=== PATIENT | male | born 1965 | race Caucasian/White ===

== ENCOUNTER 2016-07-11 08:23 | Inpatient (IN) ==
--- NOTE | 2016-07-11 09:22 | Emergency Department Note ---
Disposition Clinical Impression: Epigastric abdominal pain, Back pain, Abnormal chest x-ray, Small bowel obstruction, Gallbladder disease Disposition: Admitted As Inpatient Referrals: NO,PCP [Primary Care Provider] - Forms: Work/School Release, ED Satisfaction Letter General Adult HPI - General Chief complaint: ED Abdominal Pain Stated complaint: abdominal pain Time Seen by Provider: 07/11/16 09:13 Source: patient Limitations: no limitations - History of Present Illness HPI Narrative: 51-year-old male reports to the emergency department complaining of midepigastric pain and some back pain. The patient reports he was seen by his primary care provider and was diagnosed with an abdominal wall hernia, he has been referred to surgery. The patient reports persistent midabdominal discomfort, he took some Pepcid which did not help. The patient denies any chest pain shortness of breath cough and runny nose or pain or sore throat no coughing of blood like swelling or syncope. The patient denies any chest pain. He has no history of coronary disease but does have history of hypertension hyperlipidemia. No previous history of aneurysm, abdominal surgery, or kidney stone. No genital complaints, no bloody urine, no bloody stool. No vomiting. The patient has chronic lower back pain, no previous surgeries. There is no history of weakness or numbness in legs or bowel or bladder problems. The patient describes bulging in his abdomen. There is no history of trauma or redness of the skin in the abdominal area. There is no history of rash. The patient reports abdominal pain is present intermittently for 3 weeks. Pain Scale: 3 - Related Data Home Medications Medication Instructions Recorded Confirmed Amlodipine Besylate [Amlodipine 10 mg PO DAILY 07/11/16 07/11/16 Besylate] Atorvastatin [Lipitor] 40 mg PO HS 07/11/16 07/11/16 Allergies Allergy/AdvReac Type Severity Reaction Status Date / Time No Known Allergies Allergy Verified 07/11/16 12:36 All systems ED: reviewed and negative except as stated. Past Medical History - Past Medical History Medical history: Reports: hyperlipidemia, hypertension - Social History Smoking Status: Current some day smoker Alcohol use: Reports: occasionally Drug use: Reports: none Physical Exam - General Limitations: no limitations General appearance: alert, in no apparent distress - Head Head exam: atraumatic, normocephalic, normal inspection - Eye Eye exam: Present: normal appearance, PERRL, EOMI - ENT ENT exam: normal exam, normal oropharynx, mucous membranes moist, normal external ear exam - Neck Neck exam: Present: normal inspection, full ROM, trachea midline - Chest Chest inspection: Present: symmetric chest wall rise. Absent: tenderness - Respiratory Respiratory exam: Present: normal lung sounds bilaterally. Absent: respiratory distress - Cardiovascular Cardiovascular exam: Present: regular rate, normal rhythm, normal heart sounds - Abdominal Exam Abdominal exam: Present: soft, tenderness, hernia. Absent: distention, guarding , rebound, rigidity, trauma, incision, Anders's sign, Rovsing's sign, tenderness at McBurney's Point, ascites, mass, bruit, pulsatile mass, scar Abdominal tenderness: Present: epigastrium, mild - Extremities Exam Extremities exam: Present: normal inspection, full ROM, normal capillary refill. Absent: tenderness, pedal edema, joint swelling, calf tenderness - Expanded Lower Extremity Exam Neurovascular/Tendon exam: Absent: motor deficit, sensory deficit, tendon deficit, extremity cold to touch, pallor - Back Exam Back exam: Present: normal inspection, full ROM. Absent: tenderness, CVA tenderness (R), CVA tenderness (L), muscle spasm, vertebral tenderness, straight leg raise (R), straight leg raise (L) - Neurological Exam Neurological exam: Present: alert, oriented X3, CN II-XII intact. Absent: motor sensory deficit - Psychiatric Psychiatric exam: Present: normal affect, normal mood - Skin Skin exam: Present: warm, dry, intact, normal color. Absent: rash, cyanosis, diaphoresis, erythema, pallor, mottled Course Vital Signs Temperature 97.7 F 07/11/16 08:24 Pulse Rate 96 07/11/16 08:24 Respiratory Rate 16 07/11/16 08:24 Blood Pressure 135/89 07/11/16 08:24 O2 Sat by Pulse Oximetry 98 07/11/16 08:24 Temperature 97.7 F 07/11/16 08:24 Pulse Rate 70 07/11/16 12:21 Respiratory Rate 16 07/11/16 12:21 Blood Pressure 147/58 07/11/16 12:21 O2 Sat by Pulse Oximetry 100 07/11/16 12:21 Oxygen Delivery Oxygen Delivery Room Air Medical Decision Making - [facility] Narrative Medical decision making narrative: The patient's CT scan reveals what appears to be a small bowel obstruction. Based on the the findings I think the patient will require admission to the hospital. I consulted with the hospitalist on-call. An NG tube has been ordered for gastric decompression. I also consult with Dr. Fernández the surgeon on-call who will act as csm consultant. The patient has been accepted to internal medicine. - Lab Data Lab results reviewed: Yes I reviewed the patient's lab results. Result diagrams: 07/11/16 10:14 07/11/16 10:14 Lab Results 07/11/16 07/11/16 07/11/16 Range/Units 09:23 10:14 10:14 WBC 9.8 (4.3-11.1) K/mcL RBC 5.47 (4.19-5.50) M/mcL Hgb 16.5 (12.9-16.9) g/dL Hct 50.0 (37.5-50.1) % MCV 91.4 (83.0-100.0) fL MCH 30.2 (28.0-33.3) pg MCHC 33.0 (31.6-35.5) g/dL RDW 13.1 (11.5-14.5) % Plt Count 182 (140-400) K/mcL MPV 10.6 (9.4-12.4) fL Immature Gran % 0.3 (0-4) % Seg Neutrophils % 73.6 % Lymphocytes % 18.9 % Monocytes % 5.2 % Eosinophils % 1.7 % Basophils % 0.3 % Neutrophils # 7.2 (1.6-8.9) K/mcL Lymphocytes # 1.9 (0.6-4.6) K/mcL Monocytes # 0.5 (0.0-1.3) K/mcL Eosinophils # 0.2 (0.0-0.6) K/mcL Basophils # 0.0 (0.0-0.2) K/mcL Sodium 141 (136-145) mEq/L Potassium 4.3 (3.5-4.5) mEq/L Chloride 106 (98-109) mEq/L Carbon Dioxide 28 (19-29) mEq/L BUN 10 (8-26) mg/dL Creatinine 1.02 (0.72-1.25) mg/dL Est GFR ( Amer) > 60 (> 60) Est GFR (Non-Af Amer) > 60 (> 60) BUN/Creatinine Ratio 10 (6-26) Glucose 104 H (70-99) mg/dL Calculated Osmolality 291 (280-300) Lactic Acid (0.5-2.2) mmol/L Calcium 10.0 (8.6-10.8) mg/dL Total Bilirubin 0.6 (0.2-1.2) mg/dL Direct Bilirubin 0.2 (0.0-0.5) mg/dL Indirect Bilirubin 0.4 (0.0-1.2) mg/dL AST 20 (5-34) Units/L ALT 28 (0-55) Units/L Alkaline Phosphatase 72 (38-126) Units/L Troponin I (0-0.03) ng/mL C-Reactive Protein 0 (Less than 5) mg/L Serum Total Protein 7.1 (6.0-8.3) g/dL Albumin 4.1 (3.5-5.0) g/dL Globulin 3.0 (2.4-3.5) g/dL Albumin/Globulin Ratio 1.4 (1.1-2.2) Amylase 38 (25-125) Units/L Lipase 23 (8-78) Units/L Urine Color Yellow (Yellow) Urine Clarity Clear (Clear) Urine pH 7.0 (5.0-8.0) pH Units Ur Specific [place] 1.026 H (1.010-1.025) Urine Protein Negative (Neg-Trace) mg/dL Urine Glucose (UA) Normal (Normal) mg/dL Urine Ketones Negative (Negative) mg/dL Urine Blood Negative (Negative) Urine Nitrite Negative (Negative) Urine Bilirubin Negative (Negative) Urine Urobilinogen Normal (Normal) mg/dL Ur Leukocyte Esterase Negative (Negative) Ur Culture Indicated? NO (NO) 07/11/16 07/11/16 Range/Units 10:14 10:14 WBC (4.3-11.1) K/mcL RBC (4.19-5.50) M/mcL Hgb (12.9-16.9) g/dL Hct (37.5-50.1) % MCV (83.0-100.0) fL MCH (28.0-33.3) pg MCHC (31.6-35.5) g/dL RDW (11.5-14.5) % Plt Count (140-400) K/mcL MPV (9.4-12.4) fL Immature Gran % (0-4) % Seg Neutrophils % % Lymphocytes % % Monocytes % % Eosinophils % % Basophils % % Neutrophils # (1.6-8.9) K/mcL Lymphocytes # (0.6-4.6) K/mcL Monocytes # (0.0-1.3) K/mcL Eosinophils # (0.0-0.6) K/mcL Basophils # (0.0-0.2) K/mcL Sodium (136-145) mEq/L Potassium (3.5-4.5) mEq/L Chloride (98-109) mEq/L Carbon Dioxide (19-29) mEq/L BUN (8-26) mg/dL Creatinine (0.72-1.25) mg/dL Est GFR ( Amer) (> 60) Est GFR (Non-Af Amer) (> 60) BUN/Creatinine Ratio (6-26) Glucose (70-99) mg/dL Calculated Osmolality (280-300) Lactic Acid 0.9 (0.5-2.2) mmol/L Calcium (8.6-10.8) mg/dL Total Bilirubin (0.2-1.2) mg/dL Direct Bilirubin (0.0-0.5) mg/dL Indirect Bilirubin (0.0-1.2) mg/dL AST (5-34) Units/L ALT (0-55) Units/L Alkaline Phosphatase (38-126) Units/L Troponin I 0.00 (0-0.03) ng/mL C-Reactive Protein (Less than 5) mg/L Serum Total Protein (6.0-8.3) g/dL Albumin (3.5-5.0) g/dL Globulin (2.4-3.5) g/dL Albumin/Globulin Ratio (1.1-2.2) Amylase (25-125) Units/L Lipase (8-78) Units/L Urine Color (Yellow) Urine Clarity (Clear) Urine pH (5.0-8.0) pH Units Ur Specific [place] (1.010-1.025) Urine Protein (Neg-Trace) mg/dL Urine Glucose (UA) (Normal) mg/dL Urine Ketones (Negative) mg/dL Urine Blood (Negative) Urine Nitrite (Negative) Urine Bilirubin (Negative) Urine Urobilinogen (Normal) mg/dL Ur Leukocyte Esterase (Negative) Ur Culture Indicated? (NO) - Radiology Data Radiology results reviewed: Yes I reviewed the patient's radiology results.
[2016-07-11 10:12] LABS: Bilirubin,Urine Negative (Negative); Blood,Urine Negative (Negative); Clarity,Urine Clear (Clear); Color,Urine Yellow (Yellow); Glucose,Urine (UA) Normal (Normal); Ketones,Urine Negative (Negative); Leukocyte Esterase,Urine Negative (Negative); Nitrite,Urine Negative (Negative); Protein,Urine Negative (Neg-Trace); Specific Gravity,Urine 1.026 (1.010-1.025); Urobilinogen,Urine Normal (Normal)
[2016-07-11] MEDS ORDERED: 0.9 % Sodium Chloride 1,000 ML IVC ONE (10:19)
[2016-07-11 10:21] LABS: Basophils % 0.3 %; Eosinophils # 0.2 K/mcL (0.0-0.6); Eosinophils % 1.7 %; Hemoglobin 16.5 g/dL (12.9-16.9); Immature Granulocytes % 0.3 % (0-4); Lymphocytes # 1.9 K/mcL (0.6-4.6); Lymphocytes % 18.9 %; Mean Corpuscular Hemoglobin 30.2 pg (28.0-33.3); Mean Corpuscular Volume 91.4 fL (83.0-100.0); Mean Platelet Volume 10.6 fL (9.4-12.4); Monocytes # 0.5 K/mcL (0.0-1.3); Monocytes % 5.2 %; Neutrophils # 7.2 K/mcL (1.6-8.9); Platelet Count 182 K/mcL (140-400); Red Blood Count 5.47 M/mcL (4.19-5.50); Red Cell Distribution Width 13.1 % (11.5-14.5); Segmented Neutrophils % 73.6 %
[2016-07-11 10:35] LABS: Alanine Aminotransferase 28 Units/L (0-55); Albumin 4.1 g/dL (3.5-5.0); Albumin/Globulin Ratio 1.4 (1.1-2.2); Alkaline Phosphatase 72 Units/L (38-126); Amylase 38 Units/L (25-125); Aspartate Amino Transferase 20 Units/L (5-34); BUN/Creatinine Ratio 10 (6-26); Bilirubin,Direct 0.2 mg/dL (0.0-0.5); Bilirubin,Indirect 0.4 mg/dL (0.0-1.2); Bilirubin,Total 0.6 mg/dL (0.2-1.2); Blood Urea Nitrogen 10 mg/dL (8-26); Carbon Dioxide 28 mEq/L (19-29); Chloride 106 mEq/L (98-109); Glucose 104 mg/dL (70-99); Lipase 23 Units/L (8-78); Osmolality,Calculated 291 (280-300); Potassium 4.3 mEq/L (3.5-4.5); Sodium 141 mEq/L (136-145); Total Protein 7.1 g/dL (6.0-8.3); eGFR For African Americans > 60 (> 60); eGFR For Non-African Americans > 60 (> 60)
[2016-07-11 10:52] LABS: C-Reactive Protein 0 mg/L (Less than 5)
[2016-07-11] MEDS ORDERED: *HR* HYDROmorphone (PF) 1 MG/ML SYRINGE IVP ONE (15:01)
[2016-07-11] MEDS ORDERED: Ondansetron 4 MG/2 ML VIAL IVP ONE (15:02)
--- NOTE | 2016-07-11 16:13 | General Surgery Consult Note ---
<Kizzy Khoury Harriet - Last Filed: 07/11/16 16:18> Date of Encounter: 07/11/16 Time of Encounter: 16:00 Assessment and Plan (1) Small bowel obstruction Current Visit: Yes Status: Acute Conservative measures including: NPO except ice chips NG tube to LIWS IV fluids Supportive care/pain control Serial abdominal exams No urgent surgical intervention indicated at this time Will continue to follow and assess progress History of Present Illness Consult date: 07/11/16 Reason for consult: other (SBO) History of present illness: Mr. Gilliam is a very pleasant 51 year old male with a past medical history significant for hypertension and hyperlipidemia. He presented to the ED after having sudden onset of back and abdominal pain at 0500 this morning. He states that he pain on presentation was concentrated around his central abdomen. He has never experienced pain like this in the past. Reports sensation of bloating and nausea. Denies any vomiting. Denies any fevers of chills. Denies any shortness of breath or chest pains. Denies any difficulty with urination. His last bowel movement was this morning and was diarrhea. Denies any melena or hematochezia. He typically has a bowel movement daily or more. We have been asked to see an evaluate the patient for possible small bowel obstruction. Past Med Surg Social Fam HX - Past Medical History Source: patient Medical history: hyperlipidemia, hypertension - Past Surgical History Surgical History: orthopedic, other (spinal fusion), other (T&A) - Social History Smoking Status: Current some day smoker Alcohol use: occasionally (3 times per week) Drug use: none Occupational status: employed Current living situation: Home - Independent Activity Level: Independent ambulation - Family History Father Living Status: Still Living Hx Family Cardiac Disorders: Yes (CAD) Mother Living Status: Still Living Medications and Allergies Amlodipine Besylate [Amlodipine Besylate] 10 mg PO DAILY 07/11/16 [History] Atorvastatin [Lipitor] 40 mg PO HS 07/11/16 [History] Allergies No Known Allergies Allergy (Verified 07/11/16 12:36) Review of Systems All systems PM: reviewed and no additional remarkable complaints except as stated (in the HPI) All systems PM: A 10-system review of systems was performed and is negative for pertinent findings except as documented above in the HPI. General Surgery Exam Initial Vital Signs Temp Pulse Resp BP Pulse Ox 97.7 F 96 16 135/89 98 07/11/16 08:24 07/11/16 08:24 07/11/16 08:24 07/11/16 08:24 07/11/16 08:24 - General physical appearance well developed, well nourished, no distress, no pain - Eyes normal ocular movement - ENT normal mucosa, atraumatic, normocephalic - Neck trachea midline - Respiratory normal expansion, normal respiratory effort, clear to auscultation - Cardiovascular Cardiovascular exam: Present: RRR, 15, 16 - Abdomen Abdomen general surgery: Present: bowel sounds present, soft, non tender, wound (NG tube to LIWS with minimal amount of clear drainage noted) - Integumentary Integumentary general surgery: Present: warm and dry - Neurologic Present: CN 2-12 grossly intact - Musculoskeletal Present: normal gait, normal posture - Psychiatric Psychiatric general surgery: Present: appropriate, oriented to person, oriented to place, oriented to time, speech is normal, memory intact Exam Initial Vital Signs Temp Pulse Resp BP Pulse Ox 97.7 F 96 16 135/89 98 07/11/16 08:24 07/11/16 08:24 07/11/16 08:24 07/11/16 08:24 07/11/16 08:24 Results - Labs 07/11/16 10:14 07/11/16 10:14 Abnormal lab results Glucose 104 mg/dL (70-99) H 07/11/16 10:14 Ur Specific [place] 1.026 (1.010-1.025) H 07/11/16 09:23 All other labs normal. - Imaging CT scan - abdomen: report reviewed CT scan - pelvis: report reviewed Additional studies: Chest X-Ray 07/11/16 09:31 IMPRESSION: 1. No acute findings in the chest. 2. Few air-filled dilated loops of small bowel in the left upper quadrant with air-fluid levels. Findings either reflect ileus or small-bowel obstruction. D/ / Ela Mcmahon MD / Ela Mcmahon MD Interpreting Provider: Ela Mcmahon MD Abdomen/Pelvis CT 07/11/16 11:25 IMPRESSION: 1. Dilated proximal small bowel loops measuring up to 3.7 cm in diameter. The distal small bowel loops are decompressed. Transition point is seen in the left mid abdomen. Findings are consistent with small bowel obstruction. 2. Hepatic steatosis. 3. Intermediate attenuation nodule in the gallbladder may represent a gallstone, sludge, or possibly and gallbladder wall polyp. No CT evidence for acute cholecystitis. This can be further evaluated by nonemergent right upper quadrant ultrasound. D/ / 07/11/2016 12:07:20 Jose R Castellanos MD / siobhan Interpreting Provider: Jose R Castellanos MD Consult Discharge Plan - Plan Referrals: Kizzy Boland MD [Non-Partnered Physician] - - Attending Attestation I examined this patient and my medical decision-making was reviewed with the PORK CUTLET MAKER/PA/Advanced Practice Nurse/Resident Physician. I agree with the documented findings, disposition and treatment plan as described except to the extent set forth below. <Ronald Fernández - Last Filed: 07/11/16 17:30> Date of Encounter: 07/11/16 Review of Systems All systems PM: A 10-system review of systems was performed and is negative for pertinent findings except as documented above in the HPI. General Surgery Exam Initial Vital Signs Temp Pulse Resp BP Pulse Ox 97.7 F 96 16 135/89 98 07/11/16 08:24 07/11/16 08:24 07/11/16 08:24 07/11/16 08:24 07/11/16 08:24 Exam Initial Vital Signs Temp Pulse Resp BP Pulse Ox 97.7 F 96 16 135/89 98 07/11/16 08:24 07/11/16 08:24 07/11/16 08:24 07/11/16 08:24 07/11/16 08:24 Results - Labs 07/11/16 10:14 07/11/16 10:14 Abnormal lab results Glucose 104 mg/dL (70-99) H 07/11/16 10:14 Ur Specific [place] 1.026 (1.010-1.025) H 07/11/16 09:23 All other labs normal. - Attending Attestation The assessment and physical exam with the nurse practitioner present. Symptoms started early this morning with abdominal distention but no true abdominal pain. He has had bowel movements and flatus. He states that once the NG tube was placed he had improvement of his symptoms without drainage from the NG tube. She denies any current abdominal pain symptoms and on examination he has positive bowel sounds with evidence of rectus diastases and a small reducible umbilical hernia that is nontender. Personally reviewed the CT scan images and report and he does have signs of dilated small bowel but no evidence of a mass effect and no true evidence of an internal hernia. I agree with NG tube decompression and serial abdominal examinations at this time. We will reevaluate the need for the NG tube within the next 24 hours.
[2016-07-11] MEDS ORDERED: Chloraseptic Spray 177 ML BOTTLE MM PRN (16:18)
--- NOTE | 2016-07-11 16:34 | Internal Med History&Physical ---
Date of Encounter: 07/11/16 Time of Encounter: 16:32 Assessment and Plan (1) Essential hypertension Current visit: Yes Status: Acute Pain control. IV metoprolol as needed for blood pressure greater than 181 the patient is nothing by mouth. Resume oral meds once the patient has reliable oral intake. (2) Hyperlipidemia Current visit: Yes Status: Acute We will resume statin once the patient has an oral intake. Qualifiers: Hyperlipidemia type: unspecified Qualified Code(s): E78.5 - Hyperlipidemia , unspecified (3) Small bowel obstruction Current visit: Yes Status: Acute Nothing by mouth except ice chips. NG tube to suction. Serial abdominal exams. General surgery consult. IV fluids. IV morphine for pain. IV Zofran for nausea. (4) DVT prophylaxis Current visit: Yes Status: Acute Encourage early ambulation. He does not require pharmacological prophylaxis as he is fully ambulatory. Encourage capping the NG tube for ambulation 3 times a day. Internal Medicine - H&P: HPI Chief complaint: Abdominal pain Admitted From: Emergency Dept Plans for Post Hospital Care: Home History of present illness: Mr. Gilliam is a 51 year old male with past medical history significant for hypertension and hyperlipidemia who presented to the hospital for sudden onset at 5 AM this morning of epigastric abdominal pain which he describes as gas pressure, rates as moderate, associated with belching. He took some Pepcid and Tums with no relief. He denies any associated fever nausea vomiting diarrhea. He has had a regular bowel movement today. The patient reports that he has developed an abdominal hernia a few weeks ago and he was arranging an appointment with a surgeon. Evaluation in the emergency department included a CT scan of the abdomen and pelvis which showed small bowel obstruction. A 10 point review of systems was negative except per the history of present illness. Family history reviewed and found to be noncontributory to this presentation. Social history: The patient is a schoolteacher. He smokes 3 small cigars a day , denies alcohol abuse, denies drug use. Past Med Surg Social Fam HX - Past Medical History Medical history: hyperlipidemia, hypertension Psychiatric history: no psych history - Past Surgical History Surgical History: orthopedic, other, other - Social History Smoking Status: Current some day smoker Alcohol use: occasionally Drug use: none - Family History Father Age: 73 Living Status: Still Living Hx Family Cardiac Disorders: Yes (pacemaker with defibulator) Mother Living Status: Still Living Internal Medicine - H&P: Meds Amlodipine Besylate [Amlodipine Besylate] 10 mg PO DAILY 07/11/16 [History] Atorvastatin [Lipitor] 40 mg PO HS 07/11/16 [History] Allergies No Known Allergies Allergy (Verified 07/11/16 12:36) All Systems PM: A 10-system review of systems was performed and is negative for pertinent findings except as documented above in the HPI. - Constitutional Vitals: Temp Pulse Resp BP Pulse Ox 97.7 F 80 16 132/86 95 07/11/16 15:55 07/11/16 15:55 07/11/16 15:55 07/11/16 15:55 07/11/16 15:55 General appearance: Present: A&O X 3 - Eye Eye exam: Present: PERRL, conjuntiva pink, sclera anicteric Pupils: Present: PERRL - Respiratory Respiratory exam: Present: CTAB. Absent: accessory muscle use, rales, rhonchi, wheezes - Cardiovascular Cardiovascular exam: Present: RRR, +S1, +S2. Absent: diastolic murmur, gallop, rubs, systolic murmur - GI/Abdominal GI/Abdominal exam: Present: normal bowel sounds, soft, no peritoneal signs. Absent: distended, tenderness - Extremities Exam Extremities exam: Present: warm, radial pulses palpable and symetrical. Absent : calf tenderness, cyanotic, pedal edema - Neurological Exam Neurological exam: Present: CN II-XII intact, oriented X3, no focal deficits. Absent: pronater drift, facial droop, speech deficit - Skin Skin exam: Present: dry, intact Internal Med - H&P Results - Labs CBC & Chem 7: 07/11/16 10:14 07/11/16 10:14
[2016-07-11] MEDS ORDERED: Ondansetron 4 MG/2 ML VIAL IVP PRN (16:41)
[2016-07-11] MEDS ORDERED: Naloxone 0.4 MG/ML INJ IVP PRN (16:41)
[2016-07-11] MEDS: *HR* Morphine 2 MG/ML SYRINGE IVP PRN ×2 (17:11→21:42)
[2016-07-11] MEDS: 0.9 % Sodium Chloride 1,000 ML IVC SCH (17:12)
[2016-07-11] MEDS: Famotidine 20 MG/2 ML VIAL IVP SCH (17:12)
[2016-07-12] MEDS: 0.9 % Sodium Chloride 1,000 ML IVC SCH (03:44)
[2016-07-12 05:09] LABS: Basophils % 0.3 %; Eosinophils # 0.3 K/mcL (0.0-0.6); Eosinophils % 2.4 %; Hematocrit 51.1 % (37.5-50.1); Hemoglobin 16.8 g/dL (12.9-16.9); Immature Granulocytes % 0.4 % (0-4); Lymphocytes % 13.8 %; Mean Corpuscular HGB Conc 32.9 g/dL (31.6-35.5); Mean Corpuscular Hemoglobin 30.1 pg (28.0-33.3); Mean Corpuscular Volume 91.4 fL (83.0-100.0); Mean Platelet Volume 11.2 fL (9.4-12.4); Neutrophils # 10.9 K/mcL (1.6-8.9); Platelet Count 187 K/mcL (140-400); Red Blood Count 5.59 M/mcL (4.19-5.50); Red Cell Distribution Width 13.3 % (11.5-14.5); Segmented Neutrophils % 76.1 %
[2016-07-12] MEDS: Famotidine 20 MG/2 ML VIAL IVP SCH (05:18)
[2016-07-12 05:20] LABS: BUN/Creatinine Ratio 11 (6-26); Blood Urea Nitrogen 11 mg/dL (8-26); Calcium 9.2 mg/dL (8.6-10.8); Carbon Dioxide 26 mEq/L (19-29); Chloride 107 mEq/L (98-109); Glucose 99 mg/dL (70-99); Magnesium 2.3 mg/dL (1.6-2.6); Osmolality,Calculated 287 (280-300); Potassium 4.1 mEq/L (3.5-4.5); Sodium 139 mEq/L (136-145); eGFR For African Americans > 60 (> 60); eGFR For Non-African Americans > 60 (> 60)
--- NOTE | 2016-07-12 10:49 | General Surgery Progress Note ---
Date of Encounter: 07/12/16 Time of Encounter: 10:45 - Assessment and Plan (1) Small bowel obstruction Status: Acute Conservative measures including: NG discontinued Clear liquids IV fluids Supportive care/pain control Serial abdominal exams No urgent surgical intervention indicated at this time Will continue to follow and assess progress Subjective Patient reports: no new complaints, feels better, voiding w/o difficulty, flatus , no bowel movement, afebrile Objective Vital Signs - Last 8 Hours Temp Pulse Resp BP Pulse Ox 07/12/16 06:46 98.0 F 74 16 130/78 95 07/12/16 05:33 97.8 F 67 20 145/82 95 Intake and Output 07/11/16 07/12/16 07/12/16 23:59 07:59 15:59 Intake Total 15 / 15 1000 / 1000 0 / 0 Output Total 1475 / 1475 550 / 550 Balance -1460 / -1460 450 / 450 0 / 0 Intake: IV Fluids 1000 / 1000 0.9 % Sodium Chloride 1, 1000 / 1000 000 ML @ 100 mls/hr IVC . Q10H SOHAN Rx#:[id number] Oral 15 / 15 0 / 0 0 / 0 Output: Urine 725 / 725 200 / 200 Gastric Drainage 750 / 750 350 / 350 Other: Meal NPO NPO BREAKFAST Percent of Meal Consumed 0% Weight 97.4 kg Blood Glucose* 90 96 Patient Weight 07/12/16 23:59 Weight 97.4 kg - General physical appearance well developed, well nourished, no distress, no pain - Eyes normal ocular movement - ENT normal mucosa, atraumatic, normocephalic - Neck Neck exam: trachea midline - Respiratory normal expansion, normal respiratory effort, clear to auscultation - Cardiovascular Cardiovascular exam: Present: RRR - Abdomen Abdomen: Present: bowel sounds present, soft, non tender - Neurologic CN 2-12 grossly intact - Musculoskeletal normal gait, normal posture - Psychiatric oriented to time, oriented to person, oriented to place, speech is normal, memory intact - Labs 07/12/16 13:26 07/12/16 04:41 Diabetes panel 07/12/16 Range/Units 04:41 Sodium 139 (136-145) mEq/L Potassium 4.1 (3.5-4.5) mEq/L Chloride 107 (98-109) mEq/L Carbon Dioxide 26 (19-29) mEq/L BUN 11 (8-26) mg/dL Creatinine 1.00 (0.72-1.25) mg/dL Glucose 99 (70-99) mg/dL Calcium 9.2 (8.6-10.8) mg/dL Calcium panel 07/12/16 Range/Units 04:41 Calcium 9.2 (8.6-10.8) mg/dL Pituitary panel 07/12/16 Range/Units 04:41 Sodium 139 (136-145) mEq/L Potassium 4.1 (3.5-4.5) mEq/L Chloride 107 (98-109) mEq/L Carbon Dioxide 26 (19-29) mEq/L BUN 11 (8-26) mg/dL Creatinine 1.00 (0.72-1.25) mg/dL Glucose 99 (70-99) mg/dL Calcium 9.2 (8.6-10.8) mg/dL Adrenal panel 07/12/16 Range/Units 04:41 Sodium 139 (136-145) mEq/L Potassium 4.1 (3.5-4.5) mEq/L Chloride 107 (98-109) mEq/L Carbon Dioxide 26 (19-29) mEq/L BUN 11 (8-26) mg/dL Creatinine 1.00 (0.72-1.25) mg/dL Glucose 99 (70-99) mg/dL Calcium 9.2 (8.6-10.8) mg/dL Consult Discharge Plan - Plan Referrals: Laxmi Dempsey, SOFTWARE DEVELOPMENT LEADER [Advanced Practice Nurse] - 07/20/16 10:00 am - Attending Attestation I examined this patient and my medical decision-making was reviewed with the JAZZ MUSICIAN/PA/Advanced Practice Nurse/Resident Physician. I agree with the documented findings, disposition and treatment plan as described except to the extent set forth below. I reviewed the above assessment and examination with the nurse practitioner present. Patient denies any abdominal pain symptoms and the NG tube was able to be removed this morning. He is currently tolerating clears and has no pain at palpation. Positive bowel sounds noted. I think he will be appropriate to advance his diet to soft foods and if he tolerates okay for discharge home later this afternoon from surgery standpoint.
[2016-07-12 11:15] VITALS: BP 142/88
[2016-07-12 13:33] LABS: Basophils % 0.3 %; Eosinophils # 0.3 K/mcL (0.0-0.6); Eosinophils % 1.7 %; Hematocrit 48.8 % (37.5-50.1); Immature Granulocytes % 0.2 % (0-4); Immature Platelets 7.3 % (1.1-6.1); Lymphocytes # 2.7 K/mcL (0.6-4.6); Lymphocytes % 17.4 %; Mean Corpuscular HGB Conc 32.8 g/dL (31.6-35.5); Mean Corpuscular Hemoglobin 29.9 pg (28.0-33.3); Mean Platelet Volume 10.5 fL (9.4-12.4); Monocytes % 6.3 %; Neutrophils # 11.3 K/mcL (1.6-8.9); Platelet Count 189 K/mcL (140-400); Red Blood Count 5.36 M/mcL (4.19-5.50); Red Cell Distribution Width 13.2 % (11.5-14.5); Segmented Neutrophils % 74.1 %
--- NOTE | 2016-07-12 13:54 | Discharge Summary ---
Date of Encounter: 07/12/16 Time of Encounter: 11:15 - Discharge Diagnosis (1) Small bowel obstruction Priority: Primary Status: Acute (2) Essential hypertension Priority: Secondary Status: Chronic (3) Hyperlipidemia Priority: Secondary Status: Chronic Qualifiers: Hyperlipidemia type: unspecified Qualified Code(s): E78.5 - Hyperlipidemia , unspecified (4) Leukocytosis Priority: Secondary Status: Acute Qualifiers: Leukocytosis type: other Qualified Code(s): D72.828 - Other elevated white blood cell count - Discharge Medications Home Medications: Amlodipine Besylate 10 mg PO DAILY 07/11/16 [History] Atorvastatin [Lipitor] 40 mg PO HS 07/11/16 [History] Allergies/Adverse Reactions: Allergies No Known Allergies Allergy (Verified 07/11/16 12:36) Date of admission: 07/11/16 18:14 Primary care physician: PCP NO Consults: 07/11/16 16:43 Consult to Physician [CONS] Routine Consulting Provider: Ronald Fernández Reason for Consult: SBO Call Completed: Yes Discharging clinician: Ivana Angela Anticipated date of discharge: 07/12/16 - Patient Status Disposition: Home, Self-Care Condition: Good Functional capacity at discharge: independent ambulation - Ambulatory Orders Ambulatory Orders: Complete Blood Count [HEME] Time Frame: 07/17/16, Facility: [facility], Location: Lab - Discharge Instructions Follow Up With: Kizzy Boland MD [Non-Partnered Physician] - (In 1-2 weeks) - Diet and Activity Activity: increase activity as tolerated Diet: other (Soft diet and advance to cardiac diet as tolerated) Hospital course: Mr. Gilliam is a 51 year old male history of essential hypertension and hyperlipidemia presented to the ER with sudden onset abdominal pain. He was found to have small bowel obstruction per CT scan done in the ER. As such an NG tube was placed and patient was admitted to the hospital. He was treated conservatively. Surgery was consulted and did not recommend any aggressive surgical intervention. Since then his symptoms have improved. He is now doing much better. NG tube has been removed. Patient is tolerating clear liquids diet and is passing flatus. No longer having any abdominal pain. No nausea vomiting either. He is stable for discharge from a medical standpoint. Patient's blood counts today showed leukocytosis. No clear source of infection. Most likely from stress response related to a small bowel obstruction. We will repeat CBC as outpatient for follow-up. - Time Spent with Patient Total time spent providing and/or coordinating discharge services: Less than 30 minutes (25 min) - Constitutional Vitals: Temp Pulse Resp BP Pulse Ox 97.9 F 76 16 142/88 95 07/12/16 11:14 07/12/16 11:14 07/12/16 11:14 07/12/16 11:14 07/12/16 11:14 General appearance: Present: cooperative, A&O X 3, pleasant, no acute distress, answers questions appropriately - Neck Neck exam general surgery: Present: supple, trachea midline. Absent: lymphadenopathy - Respiratory Respiratory exam: Present: CTAB. Absent: accessory muscle use, rales, rhonchi, wheezes - Cardiovascular Cardiovascular exam: Present: RRR, +S1, +S2. Absent: diastolic murmur, gallop, rubs, systolic murmur - GI/Abdominal GI/Abdominal exam: Present: normal bowel sounds, soft, no peritoneal signs. Absent: distended, tenderness - Extremities Exam Extremities exam: Present: warm, radial pulses palpable and symetrical. Absent : calf tenderness, cyanotic, pedal edema - Neurological Exam Neurological exam: Present: alert, oriented X3, no focal deficits. Absent: facial droop, speech deficit - Attending Attestation This document has been at least partially created by [employer] recognition technology by Dr. Angela. Errors in grammar, wording or other phrases may exist. If errors are found after the documentation is signed, they will be addressed individually in the addendum section of this document when appropriate.
--- NOTE | 2016-07-12 19:11 | Electrocardiograph Report ---
[facility] Test Date: 2016-07-11 Pat Name: Ronny Gilliam Department: 103 Room: 3A45 Gender: M Facility Service Manager: VL : [id number] Requested By: Rock Perez Order Number: [id number] Reading MD: Agnieszka Salmeron DO Measurements Intervals Hilger Rate: 81 P: 36 IA: 137 QRS: 38 QRSD: 111 T: 38 QT: 363 QTc: 400 Interpretive Statements SINUS RHYTHM MODERATE INTRAVENTRICULAR CONDUCTION DELAY Electronically Signed On 07-12-2016 19:10:13 EDT by Agnieszka Salmeron DO
== END 2016-07-12 14:40 | disposition home or self-care (01) | DRG 390 ==
LOC: EMEROO 08:23 → 3ANU 08:23 → SUATTDRO 18:14
PROVIDERS: ADMIT Internal Medicine; ATTEND Internal Medicine

== ENCOUNTER 2019-07-09 15:38 | Observation (INO) ==
[2019-07-09] MEDS ORDERED: Ondansetron 4 MG/2 ML VIAL IVP ONE (15:48)
[2019-07-09] MEDS ORDERED: 0.9 % Sodium Chloride 1,000 ML IVC ONE (15:48)
[2019-07-09 16:12] LABS: Basophils % 0.3 %; Eosinophils # 0.2 K/mcL (0.0-0.6); Eosinophils % 1.5 %; Hematocrit 48.6 % (37.5-50.1); Hemoglobin 15.9 g/dL (12.9-16.9); Immature Granulocytes % 0.3 % (0-4); Lymphocytes # 2.6 K/mcL (0.6-4.6); Lymphocytes % 23.5 %; Mean Corpuscular HGB Conc 32.7 g/dL (31.6-35.5); Mean Corpuscular Hemoglobin 30.9 pg (28.0-33.3); Mean Corpuscular Volume 94.4 fL (83.0-100.0); Mean Platelet Volume 10.9 fL (9.4-12.4); Monocytes # 0.6 K/mcL (0.0-1.3); Monocytes % 5.7 %; Neutrophils # 7.5 K/mcL (1.6-8.9); Platelet Count 177 K/mcL (140-400); Red Blood Count 5.15 M/mcL (4.19-5.50); Red Cell Distribution Width 12.7 % (11.5-14.5); Segmented Neutrophils % 68.7 %; White Blood Count 10.9 K/mcL (4.3-11.1)
[2019-07-09 16:20] LABS: INR 1.2; Prothrombin Time 13.4 Seconds (9.4-12.1)
[2019-07-09 16:23] LABS: Activated Partial Thrombo Time 36.4 Seconds (26.0-36.0)
[2019-07-09 16:30] LABS: Alanine Aminotransferase 24 Units/L (7-52); Albumin 4.6 g/dL (3.5-5.7); Albumin/Globulin Ratio 1.8 (1.1-2.2); Alkaline Phosphatase 67 Units/L (34-104); Aspartate Amino Transferase 20 Units/L (13-39); BUN/Creatinine Ratio 12 (6-26); Bilirubin,Total 0.7 mg/dL (0.3-1.0); Blood Urea Nitrogen 10 mg/dL (6-20); Calcium 9.9 mg/dL (8.6-10.3); Carbon Dioxide 24 mEq/L (23-29); Chloride 108 mEq/L (98-107); Globulin 2.6 g/dL (2.4-3.5); Glucose 86 mg/dL (70-105); Osmolality,Calculated 280 (280-300); Sodium 136 mEq/L (136-145); Total Protein 7.2 g/dL (6.4-8.9); eGFR For African Americans > 60 (> 60); eGFR For Non-African Americans > 60 (> 60)
[2019-07-09 16:46] LABS: Bilirubin,Urine Negative (Negative); Blood,Urine Negative (Negative); Clarity,Urine Clear (Clear); Color,Urine Yellow (Yellow); Glucose,Urine (UA) Normal (Normal); Ketones,Urine Negative (Negative); Leukocyte Esterase,Urine Negative (Negative); Nitrite,Urine Negative (Negative); Protein,Urine Negative (Neg-Trace); Specific Gravity,Urine 1.028 (1.010-1.025); Urobilinogen,Urine Normal (Normal)
[2019-07-09] MEDS ORDERED: *HR* Promethazine 25 MG/ML VIAL IVP PRN (17:40)
[2019-07-09] MEDS ORDERED: Naloxone 0.4 MG/ML INJ IVP PRN (17:40)
[2019-07-09] MEDS ORDERED: Ondansetron 4 MG/2 ML VIAL IVP PRN (17:40)
[2019-07-09] MEDS: *HR* Heparin 5,000 UNIT/ML VIAL SQ SCH (18:47)
[2019-07-09] MEDS: 0.9 % Sodium Chloride 1,000 ML IVC SCH (18:47)
[2019-07-09] MEDS: carvediloL 6.25 MG TABLET PO SCH (20:31)
[2019-07-10 01:29] LABS: Hematocrit 45.8 % (37.5-50.1); Hemoglobin 15.2 g/dL (12.9-16.9); Mean Corpuscular HGB Conc 33.2 g/dL (31.6-35.5); Mean Corpuscular Hemoglobin 31.7 pg (28.0-33.3); Mean Corpuscular Volume 95.6 fL (83.0-100.0); Mean Platelet Volume 11.8 fL (9.4-12.4); Platelet Count 162 K/mcL (140-400); Red Blood Count 4.79 M/mcL (4.19-5.50); Red Cell Distribution Width 12.9 % (11.5-14.5); White Blood Count 8.5 K/mcL (4.3-11.1)
[2019-07-10 01:51] LABS: BUN/Creatinine Ratio 13 (6-26); Blood Urea Nitrogen 11 mg/dL (6-20); Carbon Dioxide 25 mEq/L (23-29); Chloride 109 mEq/L (98-107); Glucose 77 mg/dL (70-105); Osmolality,Calculated 286 (280-300); Potassium 3.6 mEq/L (3.5-5.1); Sodium 139 mEq/L (136-145); eGFR For African Americans > 60 (> 60); eGFR For Non-African Americans > 60 (> 60)
[2019-07-10] MEDS: 0.9 % Sodium Chloride 1,000 ML IVC SCH (04:29)
[2019-07-10] MEDS: *HR* Heparin 5,000 UNIT/ML VIAL SQ SCH (05:49)
[2019-07-10 06:40] VITALS: BP 148/80
[2019-07-10] MEDS: carvediloL 6.25 MG TABLET PO SCH (07:57)
[2019-07-10] MEDS ORDERED: Aspirin Enteric Coated 81 MG Tablet PO SCH (09:00)
[2019-07-10] MEDS ORDERED: Isosorbide MONOnitrate (24 HR) 30 MG TAB.ER.24H PO SCH (09:00)
== END 2019-07-10 08:42 | disposition home or self-care (01) ==
LOC: EMEROOARM 15:38 → 3ANU 15:38
PROVIDERS: ADMIT Family Medicine; ATTEND Family Medicine